=== PATIENT | male | born 1940 | race Caucasian/White ===

== ENCOUNTER → 2017-08-09 | Day surgery (SDC) | payer MEDICARE, BC ==
[~2017-08-09] MED LIST: ACETAMINOPHEN 325 MG TAB ONE; AMLO10 PO; APREPITANT 40 MG CAP ONE; ASPI-183 PO; BUSP5TAB PO; DEXAMETHASONE SOD PHOS 4 MG/ML VIAL ONE; EPINEPHrine HCL (1:1000) 1 MG/ML VIAL ONE; LACTATED RINGER'S 1000 ML INJ 1,000 ML ONE; LIPI20TA PO; LISI10TA3 PO; MAPA500T13 PO; MEPERIDINE HCL 25 MG/ML VIAL ONE; MIDAZOLAM HCL 2 MG/2 ML VIAL ONE; MOXIFLOXACIN 0.5% OPHT SOLN 3 ML BTL ONE; OMEP20TA93 PO; ONDANSETRON HCL 4 MG/2 ML VIAL IV PUSH ONE; PHENYLEPHRINE HCL 10% OPTH SOLN 5 ML BTL ONE; PROPOFOL 200 MG/20 ML AMP IV ONE; TETRACAINE 0.5% OPTH SOLN 4 ML BTL ONE; TOBRAMYCIN/DEXAMETHASONE OPTH OINT 3.5 GM TUBE ONE; TRIAMCINOLONE ACETONIDE 40 MG/ML VIAL ONE; VOLT100T; ceFAZolin INJ 1,000 MG VIAL ONE; prednisoLONE ACETATE 1% OPHT SUSP 5 ML BTL ONE
--- NOTE | 2017-08-10 17:37 | MP ---
cc: Raffaele Ruiz MD, Karl E MD DATE OF OPERATION: 08/09/2017 POSTOPERATIVE DIAGNOSIS: Dislocated posterior chamber intraocular lens, retinal detachment, status post repair of right eye. PROCEDURE: Pars plana vitrectomy, scleral fixation of posterior chamber intraocular lens, removal of lens of unstable lens capsule, endolaser, right eye. ANESTHESIA: Dr. Johnson and general. BLOOD LOSS: Less than 1 mL COMPLICATIONS: None. INDICATIONS FOR PROCEDURE: This is a delightful patient who previously underwent retinal detachment repair and presented most recently with dislocated posterior chamber intraocular lens. The lens capsule was found to be unstable and would not support the posterior chamber intraocular lens. The patient elected for surgical correction understanding risks, benefits, alternatives. PROCEDURE IN DETAIL: After informed consent was obtained, the patient was brought to the operating room. General anesthesia was established. The right eye was prepped and draped in sterile fashion. Betadine in the conjunctival fornix. A 3 port pars plana vitrectomy was established with sterile saline infusion cannula. Remaining vitreous traction was relieved. The vitreous surrounding the posterior chamber intraocular lens was removed. The unstable lens capsule was removed. 23-gauge sclerotomies were made with adjacent scleral tunnel. The haptics of the posterior chamber intraocular lens were externalized and secured in each scleral tunnel. The lens was nicely centered and appeared to be stable. The scleral depressor examination revealed areas of previous tears which were reinforced with endolaser. Trocars were removed and sclerotomies closed. Conjunctiva was reapproximated with 6-0 plain gut. The patient was brought to recovery room in stable condition to continue followup of [facility] for his postoperative care after subconjunctival injection of Ancef and dexamethasone were given. MD NENA Maya/ , 05:19 PM , 05:37 PM
== END | disposition home or self-care (01) ==
LOC: ESDC 08:44
PROVIDERS: ATTEND Ophthalmology
DX: H27.131 Posterior dislocation of lens, right eye (principal)
CPT/HCPCS: 00142; 66825; J0171; J0690; J1100; J2175; J2250; J2405; J3010; J3301; J7120; J8501